=== PATIENT | female | born 1960 | race Caucasian/White ===

== ENCOUNTER → 2025-03-29 10:16 | Outpatient (REF) | payer OTHER, SELFPAY | LOC: HWRAD 10:16 | PROVIDERS: ATTENDING PHYSICIAN Family Medicine | DX: E04.1 Nontoxic single thyroid nodule (principal) | CPT/HCPCS: 76536; 77063; 77067 ==

== ENCOUNTER → 2025-07-30 07:25 | Outpatient (REF) | payer OTHER, SELFPAY | LOC: HWRCS 07:25 | PROVIDERS: FAMILY PHYSICIAN Family Medicine | DX: R07.89 Other chest pain (principal) | CPT/HCPCS: 78452; 93017; A9500; J2785 ==